=== PATIENT | female | born 1990 | race African-American/Black ===

== ENCOUNTER 2022-01-29 04:14 | Inpatient (IN) | payer MEDICAID ==
[~2022-01-29] VITALS: Ht 165.1 cm; Wt 93.9 kg
[~2022-01-29 04:14] MED LIST: ABIL10; ALBUTEROL; HYDR-3927 PO; INSASP SQ; INSULIN; LEVO500T2 PO; METO10TA3 PO; OMEP20CA14 PO; PREVACID; QUET300T2; [UNRECOGNIZED DRUG - REMARK]
[2022-01-29] MEDS ORDERED: DEXTROSE 50% WATER 50ML SYRINGE IV ONE (04:30)
[2022-01-29 05:42] LABS: BASOPHILS % 0.3 % (0.0-2.0); EOSINOPHILS % 0.2 % (0.0-5.0); HEMATOCRIT. 48.8 % (36.0-48.0); HEMOGLOBIN. 15.9 g/dL (12.0-16.0); LYMPHOCYTES % 8.1 % (20.0-50.0); MEAN CORPUSCULAR HEMOGLOBIN 26.8 pg (28.0-32.0); MEAN CORPUSCULAR VOLUME 82.4 fL (81.0-99.0); MONOCYTES % 4.3 % (2.0-8.0); NEUTROPHILS % 87.1 % (40.0-76.0); RED BLOOD CELL COUNT 5.92 mill/uL (4.2-5.4); RED CELL DISTRIBUTION WIDTH 16.6 % (11.6-14.6)
[2022-01-29 05:45] LABS: CHLORIDE 105 mEq/L (98-107)
[2022-01-29 06:14] LABS: MEAN PLATELET VOLUME 10.6 fl (7.4-10.4); PLATELET 407 x1000/uL (130-400)
[2022-01-29 06:30] LABS: CLARITY URINE CLEAR (CLEAR); COLOR URINE YELLOW (YELLOW); KETONES URINE NEGATIVE (NEGATIVE); LEUKOCYTE ESTERASE URINE NEGATIVE (NEGATIVE); NITRITE URINE NEGATIVE (NEGATIVE); OCCULT BLOOD URINE NEGATIVE (NEGATIVE); PH URINE 5.5 (4.5-8.0); PROTEIN URINE NEGATIVE (NEGATIVE); SPECIFIC GRAVITY URINE 1.007 (1.005-1.030); UROBILINOGEN URINE 0.2 E.U./dL (0.2-1.0)
[2022-01-29] MEDS ORDERED: POTASSIUM CHLORIDE 20MEQ TABLET SR PO ONE (07:00)
[2022-01-29] MEDS ORDERED: POTASSIUM CHLORIDE 20MEQ TABLET SR PO SCH (09:15)
[2022-01-29 11:59] VITALS: BP 113/80
[2022-01-29 12:02] VITALS: BP 120/60
[2022-01-29 12:13] VITALS: BP 120/60
[2022-01-29] MEDS ORDERED: ONDANSETRON HCL 4MG/2ML INJ IV PRN (12:15)
[2022-01-29] MEDS ORDERED: ACETAMINOPHEN 325MG TABLET PO PRN (12:15)
[2022-01-29] MEDS ORDERED: DOCUSATE SODIUM 100MG CAPSULE PO PRN (12:15)
[2022-01-29] MEDS ORDERED: MAGNESIUM/ALUMINUM HYDROXIDE/SIMETHICONE 30ML UDC PO PRN (12:15)
[2022-01-29] MEDS ORDERED: NALOXONE HCL 0.4MG/ML VIAL IV PRN (13:00)
[2022-01-29] MEDS: ENOXAPARIN 40MG/0.4ML SYR SUBCUT SCH (13:28)
[2022-01-29] MEDS: ACETAMINOPHEN 325MG TABLET PO PRN (13:29)
[2022-01-29] MEDS: SODIUM CHLORIDE 0.9% INJ 3ML FLUSH IVF SCH ×2 (13:29→22:00)
[2022-01-29 16:00] VITALS: BP 114/76
[2022-01-29 16:20] LABS: PHOSPHORUS 2.5 mg/dL (2.5-4.9)
[2022-01-29] MEDS: VANCOMYCIN 1,000 MG in DEXT 5% WATER 250 ML IV SCH (17:05)
[2022-01-29] MEDS ORDERED: DEXTROSE 50% WATER 50ML SYRINGE IV PRN (17:45)
[2022-01-29] MEDS: INSULIN LISPRO 100 UNITS/ML SUBCUT SCH ×2 (18:30→22:57)
[2022-01-29] MEDS ORDERED: LEVE1000 PO (18:47)
[2022-01-29 20:00] VITALS: BP 127/78
[2022-01-29 20:16] LABS: CHLORIDE 104 mEq/L (98-107)
[2022-01-29 20:20] LABS: PHOSPHORUS 2.4 mg/dL (2.5-4.9)
[2022-01-29] MEDS: BLOOD SUGAR DIAGNOSTIC STRIP TEST SCH (21:00)
[2022-01-30] VITALS: BP 133/63
[2022-01-30] MEDS: VANCOMYCIN 1,000 MG in DEXT 5% WATER 250 ML IV SCH ×3 (01:25→08:38)
[2022-01-30 04:00] VITALS: BP 139/81
[2022-01-30] MEDS: SODIUM CHLORIDE 0.9% INJ 3ML FLUSH IVF SCH ×3 (05:09→21:45)
[2022-01-30] MEDS: ACETAMINOPHEN 325MG TABLET PO PRN ×2 (06:00→21:41)
[2022-01-30] MEDS: BLOOD SUGAR DIAGNOSTIC STRIP TEST SCH ×4 (06:28→21:33)
[2022-01-30] MEDS: INSULIN LISPRO 100 UNITS/ML SUBCUT SCH ×4 (06:29→21:41)
[2022-01-30 06:34] LABS: BASOPHILS % 0.3 % (0.0-2.0); EOSINOPHILS % 1.5 % (0.0-5.0); HEMATOCRIT. 36.5 % (36.0-48.0); HEMOGLOBIN. 11.8 g/dL (12.0-16.0); LYMPHOCYTES % 29.4 % (20.0-50.0); MEAN CORPUSCULAR VOLUME 83.3 fL (81.0-99.0); MEAN PLATELET VOLUME 10.6 fl (7.4-10.4); MONOCYTES % 6.5 % (2.0-8.0); NEUTROPHILS % 62.3 % (40.0-76.0); PLATELET 294 x1000/uL (130-400); RED BLOOD CELL COUNT 4.38 mill/uL (4.2-5.4); RED CELL DISTRIBUTION WIDTH 16.4 % (11.6-14.6)
[2022-01-30 08:00] VITALS: BP 120/85
[2022-01-30 08:04] LABS: CHLORIDE 107 mEq/L (98-107)
[2022-01-30 08:11] LABS: PHOSPHORUS 3.3 mg/dL (2.5-4.9)
[2022-01-30 12:00] VITALS: BP 132/83
[2022-01-30] MEDS ORDERED: POTASSIUM CHLORIDE 20MEQ TABLET SR PO SCH (12:00)
[2022-01-30] MEDS: ENOXAPARIN 40MG/0.4ML SYR SUBCUT SCH (12:10)
[2022-01-30] MEDS ORDERED: MAGNESIUM 1 G PREMIX 100 ML IV SCH (13:00)
[2022-01-30 16:00] VITALS: BP 118/79
[2022-01-30] MEDS: VANCOMYCIN 750MG PREMIX 150 ML IV SCH (17:41)
[2022-01-30 19:43] LABS: *AMPHETAMINES SCREEN URINE NEGATIVE (NEGATIVE); *BARBITURATES SCREEN URINE NEGATIVE (NEGATIVE); *BENZODIAZEPINES SCREEN URINE NEGATIVE (NEGATIVE); *COCAINE SCREEN URINE NEGATIVE (NEGATIVE); CANNABINOID URINE SCREEN NEGATIVE (NEGATIVE); METHADONE URINE SCREEN NEGATIVE (NEGATIVE); OPIATES URINE SCREEN NEGATIVE (NEGATIVE); PHENCYCLIDINE URINE SCREEN NEGATIVE (NEGATIVE)
[2022-01-30 20:00] VITALS: BP 145/75
[2022-01-30] MEDS ORDERED: LEVETIRACETAM 500MG/5ML CUP PO SCH (21:00)
[2022-01-30] MEDS: LEVETIRACETAM 500MG TABLET PO SCH (21:30)
[2022-01-31] VITALS (7 sets, daily range): BP systolic 108–152; BP diastolic 70–103
[2022-01-31] MEDS: VANCOMYCIN 750MG PREMIX 150 ML IV SCH ×3 (02:02→17:39)
[2022-01-31] MEDS: SODIUM CHLORIDE 0.9% INJ 3ML FLUSH IVF SCH ×3 (05:47→20:51)
[2022-01-31] MEDS: BLOOD SUGAR DIAGNOSTIC STRIP TEST SCH ×4 (06:40→20:38)
[2022-01-31] MEDS: LEVETIRACETAM 500MG TABLET PO SCH ×2 (08:01→20:34)
[2022-01-31] MEDS: INSULIN LISPRO 100 UNITS/ML SUBCUT SCH ×4 (08:04→20:51)
[2022-01-31] MEDS: HYDROCODONE/ACETAMINOPHEN 5/325MG TABLET PO PRN ×3 (09:44→20:58)
[2022-01-31] MEDS: ENOXAPARIN 40MG/0.4ML SYR SUBCUT SCH (12:48)
[2022-01-31 21:46] LABS: CHLORIDE 104 mEq/L (98-107)
[2022-01-31] MEDS ORDERED: INSULIN GLARGINE 100 UNITS/ML SUBCUT SCH (22:00)
[2022-02-01] VITALS: BP 122/67
[2022-02-01 04:27] VITALS: BP 139/81
[2022-02-01] MEDS: BLOOD SUGAR DIAGNOSTIC STRIP TEST SCH ×4 (06:39→20:51)
[2022-02-01] MEDS: SODIUM CHLORIDE 0.9% INJ 3ML FLUSH IVF SCH ×3 (06:45→21:15)
[2022-02-01 08:00] VITALS: BP 136/83
[2022-02-01] MEDS: LEVETIRACETAM 500MG TABLET PO SCH ×2 (08:21→20:46)
[2022-02-01] MEDS: INSULIN LISPRO 100 UNITS/ML SUBCUT SCH ×4 (08:22→21:14)
[2022-02-01] MEDS: HYDROCODONE/ACETAMINOPHEN 5/325MG TABLET PO PRN ×3 (09:11→20:47)
[2022-02-01 12:00] VITALS: BP 134/84
[2022-02-01] MEDS: ENOXAPARIN 40MG/0.4ML SYR SUBCUT SCH (12:46)
[2022-02-01 16:00] VITALS: BP 128/83
[2022-02-01 20:00] VITALS: BP 130/72
[2022-02-01] MEDS: INSULIN GLARGINE 100 UNITS/ML SUBCUT SCH (21:15)
[2022-02-02 00:07] VITALS: BP 106/46
[2022-02-02 04:25] VITALS: BP 110/77
[2022-02-02] MEDS: SODIUM CHLORIDE 0.9% INJ 3ML FLUSH IVF SCH ×3 (06:33→22:00)
[2022-02-02] MEDS: BLOOD SUGAR DIAGNOSTIC STRIP TEST SCH ×4 (06:37→20:09)
[2022-02-02 08:00] VITALS: BP 112/62
[2022-02-02] MEDS: LEVETIRACETAM 500MG TABLET PO SCH ×2 (08:34→20:15)
[2022-02-02] MEDS: INSULIN LISPRO 100 UNITS/ML SUBCUT SCH ×4 (08:35→20:14)
[2022-02-02 08:38] LABS: BASOPHILS % 0.4 % (0.0-2.0); EOSINOPHILS % 1.4 % (0.0-5.0); HEMATOCRIT. 36.8 % (36.0-48.0); HEMOGLOBIN. 12.2 g/dL (12.0-16.0); LYMPHOCYTES % 24.1 % (20.0-50.0); MEAN CORPUSCULAR HEMOGLOBIN 27.1 pg (28.0-32.0); MEAN CORPUSCULAR VOLUME 82.1 fL (81.0-99.0); MEAN PLATELET VOLUME 9.2 fl (7.4-10.4); MONOCYTES % 6.8 % (2.0-8.0); NEUTROPHILS % 67.3 % (40.0-76.0); PLATELET 307 x1000/uL (130-400); RED BLOOD CELL COUNT 4.48 mill/uL (4.2-5.4); RED CELL DISTRIBUTION WIDTH 16.6 % (11.6-14.6)
[2022-02-02 09:24] LABS: CHLORIDE 102 mEq/L (98-107)
[2022-02-02] MEDS: HYDROCODONE/ACETAMINOPHEN 5/325MG TABLET PO PRN ×3 (10:31→20:09)
[2022-02-02 12:00] VITALS: BP 111/65
[2022-02-02] MEDS: ENOXAPARIN 40MG/0.4ML SYR SUBCUT SCH (12:38)
[2022-02-02 16:00] VITALS: BP 112/62
[2022-02-02] MEDS: VANCOMYCIN 750MG PREMIX 150 ML IV SCH (18:13)
[2022-02-02 18:47] LABS: UCG SCREEN NEGATIVE
[2022-02-02 20:34] VITALS: BP 113/67
[2022-02-02] MEDS: INSULIN GLARGINE 100 UNITS/ML SUBCUT SCH (22:14)
[2022-02-02] MEDS: DIPHENHYDRAMINE 50MG/ML VIAL IV PRN (22:15)
[2022-02-03 04:00] VITALS: BP 111/46
[2022-02-03] MEDS: HYDROCODONE/ACETAMINOPHEN 5/325MG TABLET PO PRN ×4 (04:28→22:12)
[2022-02-03] MEDS: DIPHENHYDRAMINE 50MG/ML VIAL IV PRN ×3 (04:28→18:32)
[2022-02-03] MEDS: VANCOMYCIN 750MG PREMIX 150 ML IV SCH ×3 (04:29→18:35)
[2022-02-03] MEDS: BLOOD SUGAR DIAGNOSTIC STRIP TEST SCH ×4 (05:55→21:00)
[2022-02-03] MEDS: SODIUM CHLORIDE 0.9% INJ 3ML FLUSH IVF SCH ×3 (05:56→21:53)
[2022-02-03 07:21] LABS: CHLORIDE 103 mEq/L (98-107)
[2022-02-03 07:23] LABS: BASOPHILS % 0.3 % (0.0-2.0); EOSINOPHILS % 1.7 % (0.0-5.0); HEMATOCRIT. 36.4 % (36.0-48.0); HEMOGLOBIN. 12.2 g/dL (12.0-16.0); LYMPHOCYTES % 22.2 % (20.0-50.0); MEAN CORPUSCULAR HEMOGLOBIN 27.3 pg (28.0-32.0); MEAN CORPUSCULAR VOLUME 81.4 fL (81.0-99.0); MEAN PLATELET VOLUME 9.5 fl (7.4-10.4); MONOCYTES % 7.1 % (2.0-8.0); NEUTROPHILS % 68.7 % (40.0-76.0); PLATELET 296 x1000/uL (130-400); RED BLOOD CELL COUNT 4.47 mill/uL (4.2-5.4); RED CELL DISTRIBUTION WIDTH 16.3 % (11.6-14.6)
[2022-02-03] MEDS: INSULIN LISPRO 100 UNITS/ML SUBCUT SCH ×4 (07:40→22:11)
[2022-02-03 08:00] VITALS: BP 111/64
[2022-02-03] MEDS: ENOXAPARIN 30MG/0.3ML SYR SUBCUT SCH ×2 (09:00→21:00)
[2022-02-03] MEDS: LEVETIRACETAM 500MG TABLET PO SCH ×2 (10:14→22:11)
[2022-02-03] MEDS ORDERED: IOHEXOL-350 100 ML BOTTLE ONE (11:38)
[2022-02-03 12:00] VITALS: BP 107/48
[2022-02-03] MEDS ORDERED: HYDROCODONE/ACETAMINOPHEN 5/325MG TABLET PO PRN (14:45)
[2022-02-03] MEDS ORDERED: NALOXONE HCL 0.4MG/ML VIAL IV PRN (14:45)
[2022-02-03 16:00] VITALS: BP 100/48
[2022-02-03 20:00] VITALS: BP 109/42
[2022-02-04] VITALS: BP 103/54
[2022-02-04] MEDS: VANCOMYCIN 750MG PREMIX 150 ML IV SCH ×3 (02:00→16:57)
[2022-02-04 04:00] VITALS: BP 107/52
[2022-02-04] MEDS: SODIUM CHLORIDE 0.9% INJ 3ML FLUSH IVF SCH ×3 (05:17→22:00)
[2022-02-04] MEDS: INSULIN LISPRO 100 UNITS/ML SUBCUT SCH ×4 (06:11→21:11)
[2022-02-04] MEDS: BLOOD SUGAR DIAGNOSTIC STRIP TEST SCH ×4 (06:37→21:00)
[2022-02-04 08:00] VITALS: BP 113/70
[2022-02-04] MEDS: LEVETIRACETAM 500MG TABLET PO SCH ×2 (08:57→21:10)
[2022-02-04] MEDS: ENOXAPARIN 30MG/0.3ML SYR SUBCUT SCH ×2 (08:57→21:09)
[2022-02-04] MEDS: HYDROCODONE/ACETAMINOPHEN 5/325MG TABLET PO PRN (09:11)
[2022-02-04] MEDS: DIPHENHYDRAMINE 50MG/ML VIAL IV PRN ×3 (10:24→23:06)
[2022-02-04] MEDS: INSULIN GLARGINE 100 UNITS/ML SUBCUT SCH ×2 (10:34→21:11)
[2022-02-04 11:45] VITALS: BP 108/64
[2022-02-04] MEDS: HYDROCODONE/ACETAMINOPHEN 10/325MG TABLET PO PRN ×3 (12:02→21:10)
[2022-02-04 16:00] VITALS: BP 116/75
[2022-02-04 17:16] LABS: CHLORIDE 98 mEq/L (98-107)
[2022-02-04 20:00] VITALS: BP 121/68
[2022-02-05] VITALS: BP 106/78
[2022-02-05] MEDS: VANCOMYCIN 750MG PREMIX 150 ML IV SCH ×2 (02:00→09:18)
[2022-02-05 04:00] VITALS: BP 113/85
[2022-02-05] MEDS: HYDROCODONE/ACETAMINOPHEN 10/325MG TABLET PO PRN ×4 (04:42→17:43)
[2022-02-05] MEDS: SODIUM CHLORIDE 0.9% INJ 3ML FLUSH IVF SCH ×2 (06:00→14:00)
[2022-02-05] MEDS: INSULIN LISPRO 100 UNITS/ML SUBCUT SCH ×4 (06:25→18:13)
[2022-02-05] MEDS: BLOOD SUGAR DIAGNOSTIC STRIP TEST SCH ×3 (06:25→17:47)
[2022-02-05 08:00] VITALS: BP 118/79
[2022-02-05] MEDS ORDERED: LIDOCAINE HCL 1% 10 MG/ML 10ML VIAL IJ SCH (09:15)
[2022-02-05] MEDS: ENOXAPARIN 30MG/0.3ML SYR SUBCUT SCH (09:17)
[2022-02-05] MEDS: DIPHENHYDRAMINE 50MG/ML VIAL IV PRN (09:18)
[2022-02-05] MEDS: LEVETIRACETAM 500MG TABLET PO SCH (09:18)
[2022-02-05] MEDS ORDERED: LIDOCAINE 2% JELLY PREFILLED SYRINGE MM NR (10:00)
[2022-02-05] MEDS ORDERED: LIDOCAINE HCL 1% 20ML VIAL (Pyxis) INJ INFIL SCH (10:00)
[2022-02-05] MEDS: INSULIN GLARGINE 100 UNITS/ML SUBCUT SCH (10:24)
[2022-02-05 12:00] VITALS: BP 114/61
[2022-02-05] MEDS ORDERED: CALAMINE LOTION 120ML TOP SCH (14:00)
[2022-02-05 14:49] VITALS: BP 114/61
[2022-02-05 16:00] VITALS: BP 122/63
[2022-02-05 17:41] LABS: BASOPHILS % 0.2 % (0.0-2.0); EOSINOPHILS % 1.3 % (0.0-5.0); HEMATOCRIT. 37.4 % (36.0-48.0); LYMPHOCYTES % 23.8 % (20.0-50.0); MEAN CORPUSCULAR HEMOGLOBIN 26.7 pg (28.0-32.0); MEAN CORPUSCULAR VOLUME 83.4 fL (81.0-99.0); MEAN PLATELET VOLUME 9.4 fl (7.4-10.4); NEUTROPHILS % 68.7 % (40.0-76.0); PLATELET 256 x1000/uL (130-400); RED BLOOD CELL COUNT 4.49 mill/uL (4.2-5.4); RED CELL DISTRIBUTION WIDTH 16.8 % (11.6-14.6)
[2022-02-05 18:11] LABS: CHLORIDE 97 mEq/L (98-107)
== END 2022-02-05 18:10 | disposition short-term general hospital (02) | DRG 420 ==
LOC: ER 04:14 → ENRESERV 08:44 → 7WST 11:42
PROVIDERS: ADMIT Internal Medicine; ATTEND Internal Medicine
DX: E11.69 Type 2 diabetes mellitus with other specified complication (principal); M86.141 Other acute osteomyelitis, right hand; D57.1 Sickle-cell disease without crisis; E11.65 Type 2 diabetes mellitus with hyperglycemia; E87.6 Hypokalemia; D72.829 Elevated white blood cell count, unspecified; F20.9 Schizophrenia, unspecified; E11.649 Type 2 diabetes mellitus with hypoglycemia without coma; G40.909 Epilepsy, unspecified, not intractable, without status epilepticus; F31.9 Bipolar disorder, unspecified; Z20.822 Contact with and (suspected) exposure to COVID-19; Z59.00 Homelessness unspecified; Z88.0 Allergy status to penicillin; Z88.8 Allergy status to other drugs, medicaments and biological substances; Z79.899 Other long term (current) drug therapy; Z79.4 Long term (current) use of insulin; Z72.0 Tobacco use
CPT/HCPCS: 36415; 71045; 73120; 73206; 73221; 80048; 80053; 80202; 80305; 81003; 81025; 82330; 82962; 83036; 83605; 83735; 84100; 84145; 84484; 85025; 87426; 93970; 99285; J1200; J1650; J1815; J3370; J3475; J3490; J7060; Q9967

== ENCOUNTER 2022-07-28 11:10 | Emergency (ER) | payer MEDICAID ==
[~2022-07-28] VITALS: Ht 167.6 cm; Wt 75.0 kg
[~2022-07-28 11:10] MED LIST changes: -ABIL10; -ALBUTEROL; -HYDR-3927 PO; -INSULIN; +LEVE1000 PO; -LEVO500T2 PO; -METO10TA3 PO; -OMEP20CA14 PO; -PREVACID; -QUET300T2; -[UNRECOGNIZED DRUG - REMARK]
[2022-07-28] MEDS ORDERED: SODIUM CHLORIDE 0.9% 1,000 ML IV ONE ×2 (11:30→18:15)
[2022-07-28 11:57] LABS: BG CARBOXYHEMOGLOBIN 1.2 % (0.5-1.5); BG FRACTION INSPIRED OXYGEN 21; BG HCO3 ACT 15.5 mmol/L (22.0-26.0); BG METHEMOGLOBIN 0.3 % (0.0-1.5); BG OXYHEMOGLOBIN 95.5 % (94.0-97.0); BG PH 7.332 (7.350-7.450); BG PO2 97.2 mmHg (75.0-100.0); BG SAMPLE SITE RIGHT RADIAL; BG TOTAL HEMOGLOBIN 14.2 g/dL (12.0-18.0); BG VENT MODE ROOM AIR
[2022-07-28 12:25] LABS: CHLORIDE 99 mEq/L (98-107)
[2022-07-28 12:28] LABS: BASOPHILS % 0.9 % (0.0-2.0); EOSINOPHILS % 0.7 % (0.0-5.0); HEMOGLOBIN. 13.6 g/dL (12.0-16.0); LYMPHOCYTES % 13.1 % (20.0-50.0); MEAN CORPUSCULAR HEMOGLOBIN 27.2 pg (28.0-32.0); MEAN CORPUSCULAR VOLUME 83.9 fL (81.0-99.0); MEAN PLATELET VOLUME 10.7 fl (7.4-10.4); MONOCYTES % 4.8 % (2.0-8.0); NEUTROPHILS % 80.5 % (40.0-76.0); PLATELET 187 x1000/uL (130-400); RED CELL DISTRIBUTION WIDTH 19.9 % (11.6-14.6)
[2022-07-28 12:51] LABS: HCG SCREEN NEGATIVE
[2022-07-28] MEDS: INSULIN REGULAR 100U/100ML PMX 100 ML IV SCH ×2 (13:00→15:00)
[2022-07-28] MEDS: SODIUM CHLORIDE 0.9% 1,000 ML IV ONE ×2 (13:00→15:00)
[2022-07-28] MEDS ORDERED: INSULIN REGULAR (DRIP) 100 UNITS in SODIUM CHLORIDE 0.9% 99 ML IV SCH (13:00)
[2022-07-28 13:05] LABS: CLARITY URINE CLEAR (CLEAR); COLOR URINE YELLOW (YELLOW); KETONES URINE 4+ (NEGATIVE); LEUKOCYTE ESTERASE URINE NEGATIVE (NEGATIVE); NITRITE URINE NEGATIVE (NEGATIVE); OCCULT BLOOD URINE NEGATIVE (NEGATIVE); PROTEIN URINE NEGATIVE (NEGATIVE); UROBILINOGEN URINE 0.2 E.U./dL (0.2-1.0)
[2022-07-28 13:48] LABS: ETHANOL BLOOD < 10 mg/dL
[2022-07-28 14:02] LABS: *AMPHETAMINES SCREEN URINE NEGATIVE (NEGATIVE); *BARBITURATES SCREEN URINE NEGATIVE (NEGATIVE); *BENZODIAZEPINES SCREEN URINE NEGATIVE (NEGATIVE); *COCAINE SCREEN URINE NEGATIVE (NEGATIVE); CANNABINOID URINE SCREEN NEGATIVE (NEGATIVE); METHADONE URINE SCREEN NEGATIVE (NEGATIVE); OPIATES URINE SCREEN NEGATIVE (NEGATIVE); PHENCYCLIDINE URINE SCREEN NEGATIVE (NEGATIVE)
[2022-07-28] MEDS ORDERED: DEXT 5%/0.45% NACL 1000ML 1,000 ML IV ONE (16:30)
[2022-07-28 17:55] LABS: CHLORIDE 112 mEq/L (98-107)
[2022-07-28] MEDS ORDERED: DEXTROSE 50% WATER 50ML SYRINGE IV PRN (18:15)
[2022-07-28] MEDS ORDERED: ACETAMINOPHEN 650MG/20.3ML UDC GT PRN (18:15)
[2022-07-28] MEDS ORDERED: ONDANSETRON HCL 4MG/2ML INJ IV PRN (18:15)
[2022-07-28] MEDS ORDERED: POTASSIUM CHLORIDE INJ 40 MEQ in DEXT 5% WATER 500 ML IV NR (19:00)
[2022-07-28] MEDS: INSULIN LISPRO 100 UNITS/ML SUBCUT SCH (21:00)
[2022-07-28] MEDS: BLOOD SUGAR DIAGNOSTIC STRIP TEST SCH (21:48)
[2022-07-28] MEDS ORDERED: INSULIN GLARGINE 100 UNITS/ML SUBCUT SCH (22:00)
[2022-07-29] MEDS: METOCLOPRAMIDE HCL 10MG/2ML VIAL IV SCH ×2 (00:30→06:31)
[2022-07-29 05:39] LABS: CHLORIDE 104 mEq/L (98-107)
[2022-07-29 05:40] LABS: BASOPHILS % 0.3 % (0.0-2.0); HEMOGLOBIN. 13.5 g/dL (12.0-16.0); LYMPHOCYTES % 16.9 % (20.0-50.0); MEAN CORPUSCULAR HEMOGLOBIN 27.5 pg (28.0-32.0); MEAN CORPUSCULAR VOLUME 83.4 fL (81.0-99.0); MEAN PLATELET VOLUME 9.7 fl (7.4-10.4); MONOCYTES % 7.6 % (2.0-8.0); NEUTROPHILS % 74.2 % (40.0-76.0); PLATELET 190 x1000/uL (130-400); RED BLOOD CELL COUNT 4.92 mill/uL (4.2-5.4); RED CELL DISTRIBUTION WIDTH 19.6 % (11.6-14.6)
[2022-07-29] MEDS ORDERED: INSULIN LISPRO 100 UNITS/ML SUBCUT NR (06:15)
[2022-07-29] MEDS ORDERED: INSULIN GLARGINE 100 UNITS/ML SUBCUT NR ×2 (08:00→08:15)
[2022-07-29] MEDS ORDERED: INSU100I28 SQ (08:00)
[2022-07-29] MEDS: INSULIN LISPRO 100 UNITS/ML SUBCUT SCH (08:46)
[2022-07-29] MEDS: BLOOD SUGAR DIAGNOSTIC STRIP TEST SCH (08:47)
[2022-07-29 09:50] VITALS: BP 127/74
[2022-07-29] MEDS ORDERED: INSULIN LISPRO 100 UNITS/ML SUBCUT SCH (12:50)
== END 2022-07-29 11:30 | disposition home or self-care (01) ==
LOC: ER 11:10 → EDBEDREQTM 15:31 → EDBEDREQ 15:31 → EDBEDREQSVC 21:14 → EDBEDREQ 07-29 06:09 → ER 07-29 11:30 → CANBEDREQ 07-29 12:48
DX: E11.65 Type 2 diabetes mellitus with hyperglycemia (principal); Z79.4 Long term (current) use of insulin; Z88.0 Allergy status to penicillin; E87.1 Hypo-osmolality and hyponatremia; E46 Unspecified protein-calorie malnutrition; Z68.26 Body mass index [BMI] 26.0-26.9, adult; G40.909 Epilepsy, unspecified, not intractable, without status epilepticus; Z79.899 Other long term (current) drug therapy; J45.909 Unspecified asthma, uncomplicated
CPT/HCPCS: 36415; 36573; 36600; 71045; 80048; 80053; 80305; 80320; 81003; 82010; 82375; 82805; 82962; 83036; 83690; 84703; 85025; 93005; 96361; 96365; 96366; 96372; 96375; 99291; C1725; J1815; J2765; J3480; J7030; J7060; J7050; G0480

== ENCOUNTER 2023-03-09 18:29 | Emergency (ER) | payer MEDICAID ==
[~2023-03-09] VITALS: Ht 165.1 cm; Wt 71.1 kg
[~2023-03-09 18:29] MED LIST changes: +AMLO5TAB88 MT; +INSU100I28 SQ; +LANTUSUD SUBCUT
[2023-03-09 22:29] VITALS: BP 133/82; TEMP 98; O2SAT 100
[2023-03-09 22:32] VITALS: PULSE 108; RESP 16
[2023-03-10] MEDS ORDERED: SULF1TAB48 MT (15:25)
== END 2023-03-10 00:40 | disposition left against medical advice (07) ==
LOC: ER 18:29
DX: Z53.21 Procedure and treatment not carried out due to patient leaving prior to being seen by health care provider (principal)
CPT/HCPCS: 99281

== ENCOUNTER 2023-03-10 09:52 | Emergency (ER) | payer MEDICAID ==
[~2023-03-10] VITALS: Ht 160 cm; Wt 55.0 kg
[2023-03-10 10:34] VITALS: BP 140/69; TEMP 98.7; O2SAT 100
[2023-03-10 10:56] VITALS: PULSE 72; RESP 20
[2023-03-10] MEDS ORDERED: SULF1TAB48 MT (15:25)
[2023-03-10 21:28] LABS: HCG SCREEN NEGATIVE
[2023-03-13 04:09] LABS: HIV SCREEN 4G Non Reactive (Non Reactive)
[2023-03-13 13:07] LABS: CHLAMYDIA TRACHOMATIS NAA Negative (Negative); NEISSERIA GONORRHOEAE NAA Negative (Negative)
== END 2023-03-10 16:12 | disposition home or self-care (01) ==
LOC: ER 09:52
DX: A64 Unspecified sexually transmitted disease (principal); L03.90 Cellulitis, unspecified; E11.9 Type 2 diabetes mellitus without complications; J45.909 Unspecified asthma, uncomplicated; F15.10 Other stimulant abuse, uncomplicated; Z90.49 Acquired absence of other specified parts of digestive tract; Z88.0 Allergy status to penicillin; Z88.6 Allergy status to analgesic agent; Z79.899 Other long term (current) drug therapy; Z86.59 Personal history of other mental and behavioral disorders
CPT/HCPCS: 81025; 84703; 86592; 87389; 87491; 87591; 99283

== ENCOUNTER 2023-11-16 14:51 | Emergency (ER) | payer MEDICAID, OTHER ==
[~2023-11-16] VITALS: Ht 167.6 cm; Wt 100.0 kg
[~2023-11-16 14:51] MED LIST changes: -AMLO5TAB88 MT; -INSASP SQ; -INSU100I28 SQ; +SULF1TAB48 MT
[2023-11-16 14:54] VITALS: O2SAT 100
[2023-11-16] MEDS: SODIUM CHLORIDE 0.9% 1,000 ML IV ONE ×2 (15:32→15:33)
[2023-11-16 15:43] LABS: CLARITY URINE CLEAR (CLEAR); COLOR URINE YELLOW (YELLOW); GLUCOSE URINE 3+ (NEGATIVE); KETONES URINE NEGATIVE (NEGATIVE); LEUKOCYTE ESTERASE URINE NEGATIVE (NEGATIVE); NITRITE URINE NEGATIVE (NEGATIVE); OCCULT BLOOD URINE NEGATIVE (NEGATIVE); PROTEIN URINE NEGATIVE (NEGATIVE); SPECIFIC GRAVITY URINE 1.021 (1.005-1.030); UROBILINOGEN URINE 0.2 E.U./dL (0.2-1.0)
[2023-11-16 15:45] LABS: BASOPHILS % 0.4 % (0.0-2.0); EOSINOPHILS % 0.7 % (0.0-5.0); HEMATOCRIT. 38.2 % (36.0-48.0); HEMOGLOBIN. 12.4 g/dL (12.0-16.0); LYMPHOCYTES % 17.6 % (20.0-50.0); MEAN CORPUSCULAR HEMOGLOBIN 26.1 pg (28.0-32.0); MEAN CORPUSCULAR HGB CONC 32.4 g/dL (31.0-37.0); MEAN CORPUSCULAR VOLUME 80.3 fL (81.0-99.0); MEAN PLATELET VOLUME 9.2 fl (7.4-10.4); MONOCYTES % 4.6 % (2.0-8.0); NEUTROPHILS % 76.7 % (40.0-76.0); PLATELET 307 x1000/uL (130-400); RED BLOOD CELL COUNT 4.75 mill/uL (4.2-5.4); RED CELL DISTRIBUTION WIDTH 20.8 % (11.6-14.6); WHITE BLOOD COUNT 10.1 x1000/uL (4.5-11.0)
[2023-11-16 15:51] LABS: CHLORIDE 105 mEq/L (98-107); POTASSIUM 4.3 mEq/L (3.5-5.1); SODIUM 139 mEq/L (136-145)
[2023-11-16 15:53] LABS: CALCIUM 9.8 mg/dL (8.7-10.4); CARBON DIOXIDE 25 mEq/L (21-32)
[2023-11-16 15:58] LABS: CREATININE 1.2 mg/dL (0.6-1.0); UREA NITROGEN BLOOD 11 mg/dL (9-23)
[2023-11-16 16:00] LABS: GLUCOSE 412 mg/dL (70-105); TROPONIN I HIGH SENSITIVITY < 4 ng/L (3.0-34)
[2023-11-16 16:11] LABS: HCG SCREEN NEGATIVE
[2023-11-16 16:21] LABS: BETA HYDROXYBUTYRATE < 0.1 mMol/L (0.0-0.3)
[2023-11-16 16:39] LABS: BACTERIA URINE RARE; RBC URINE 0-2 /hpf (0-2); SQUAMOUS EPITHELIAL CELL URINE FEW /lpf (RARE/1+); WBC URINE 0-2 /hpf (0-2); YEAST URINE NONE SEEN
[2023-11-16 17:10] VITALS: BP 132/62; PULSE 80; RESP 12; TEMP 98.2
== END 2023-11-16 17:30 | disposition home or self-care (01) ==
LOC: ER 15:28
DX: E11.65 Type 2 diabetes mellitus with hyperglycemia (principal); F15.10 Other stimulant abuse, uncomplicated; Z88.0 Allergy status to penicillin; Z88.6 Allergy status to analgesic agent; Z86.59 Personal history of other mental and behavioral disorders; Z90.49 Acquired absence of other specified parts of digestive tract
CPT/HCPCS: 99285; 96360; 71045; 80048; 81003; 82010; 82962; 84703; 83930; 85025; 85044; 84484; 36415; 93005; J7030

== ENCOUNTER 2025-02-24 12:39 | Inpatient (IN) | payer OTHER, MEDICAID ==
[~2025-02-24] VITALS: Ht 152.4 cm; Wt 126.1 kg
[2025-02-24 12:41] VITALS: O2SAT 100
[2025-02-24] MEDS: SODIUM CHLORIDE 0.9% 1,000 ML IV ONE ×2 (13:25→13:37)
[2025-02-24 13:46] LABS: BG BASE EXCESS 2.1 mmol/L (-2.0-3.0); BG CARBOXYHEMOGLOBIN 0.5 % (0.5-1.5); BG DEOXYHEMOGLOBIN 4.1 % (0.0-5.0); BG FRACTION INSPIRED OXYGEN 21; BG HCO3 ACT 26.9 mmol/L (21.0-28.0); BG METHEMOGLOBIN 0.3 % (0.5-1.5); BG OXYGEN SATURATION 95.9 % (94.0-98.0); BG OXYHEMOGLOBIN 95.1 % (94.0-98.0); BG PCO2 42.7 mmHg (32.0-45.0); BG PH 7.417 (7.350-7.450); BG PO2 82.9 mmHg (83.0-108.0); BG SAMPLE SITE RIGHT RADIAL; BG TOTAL HEMOGLOBIN 12.1 g/dL (12.0-16.0); BG VENT MODE ROOM AIR
[2025-02-24] MEDS: ACETAMINOPHEN 500MG TABLET PO ONE (14:06)
[2025-02-24 14:36] LABS: CLARITY URINE CLEAR (CLEAR); COLOR URINE YELLOW (YELLOW); GLUCOSE URINE 3+ (NEGATIVE); KETONES URINE NEGATIVE (NEGATIVE); LEUKOCYTE ESTERASE URINE NEGATIVE (NEGATIVE); NITRITE URINE NEGATIVE (NEGATIVE); OCCULT BLOOD URINE NEGATIVE (NEGATIVE); PH URINE 6.5 (4.5-8.0); PROTEIN URINE NEGATIVE (NEGATIVE); SPECIFIC GRAVITY URINE 1.034 (1.005-1.030); UROBILINOGEN URINE 0.2 E.U./dL (0.2-1.0)
[2025-02-24 14:48] LABS: BASOPHILS % 0.3 % (0.0-2.0); EOSINOPHILS % 1.7 % (0.0-5.0); HEMATOCRIT. 34.7 % (36.0-48.0); HEMOGLOBIN. 11.0 g/dL (12.0-16.0); LYMPHOCYTES % 20.2 % (20.0-50.0); MEAN PLATELET VOLUME 9.4 fl (7.4-10.4); MONOCYTES % 4.8 % (2.0-8.0); NEUTROPHILS % 73.0 % (40.0-76.0); PLATELET 315 x1000/uL (130-400); RED BLOOD CELL COUNT 4.51 mill/uL (4.2-5.4); RED CELL DISTRIBUTION WIDTH 18.9 % (11.6-14.6)
[2025-02-24 14:56] LABS: *AMPHETAMINES SCREEN URINE NEGATIVE (NEGATIVE); *BARBITURATES SCREEN URINE NEGATIVE (NEGATIVE); *BENZODIAZEPINES SCREEN URINE NEGATIVE (NEGATIVE); *COCAINE SCREEN URINE NEGATIVE (NEGATIVE); METHADONE URINE SCREEN NEGATIVE (NEGATIVE); OPIATES URINE SCREEN NEGATIVE (NEGATIVE)
[2025-02-24 14:57] LABS: CANNABINOID URINE SCREEN NEGATIVE (NEGATIVE); ECSTASY MDMA SCREEN URINE NEGATIVE (NEGATIVE); PHENCYCLIDINE URINE SCREEN NEGATIVE (NEGATIVE)
[2025-02-24] MEDS: DIPHENHYDRAMINE 25MG CAPSULE PO NR (14:59)
[2025-02-24] MEDS: IOHEXOL-350 100 ML BOTTLE ONE (14:59)
[2025-02-24 15:00] LABS: INR 1.0
[2025-02-24 15:02] LABS: HCG SCREEN NEGATIVE
[2025-02-24 15:04] LABS: CREATININE 0.9 mg/dL (0.6-1.0); UREA NITROGEN BLOOD 12 mg/dL (9-23)
[2025-02-24 15:05] LABS: ETHANOL BLOOD < 10 mg/dL (<10)
[2025-02-24 15:06] LABS: ASPARTATE AMINOTRANSFERASE 16 IU/L (<34); BILIRUBIN DIRECT < 0.1 mg/dL (<=3.0); TROPONIN I HIGH SENSITIVITY < 4 ng/L (3.0-34)
[2025-02-24 15:07] LABS: BILIRUBIN TOTAL 0.2 mg/dL (0.1-1.0); PROTEIN TOTAL 7.8 g/dL (6.0-8.3)
[2025-02-24 15:10] LABS: SQUAMOUS EPITHELIAL CELL URINE FEW /lpf (RARE/1+); WBC URINE 0-2 /hpf (0-2)
[2025-02-24 15:11] LABS: BACTERIA URINE NONE SEEN; RBC URINE NONE SEEN /hpf (0-2)
[2025-02-24] MEDS: INSULIN REGULAR (HUMULIN R) 1000UNITS/10ML VIAL SUBCUT NR (16:39)
[2025-02-24] MEDS: CLOPIDOGREL 75MG TABLET PO ONE (20:40)
[2025-02-25 03:15] VITALS: BP 128/82; PULSE 78; RESP 14; TEMP 36.5848
[2025-02-25] MEDS ORDERED: DEXTROSE 50% WATER 50ML SYRINGE IV PRN ×3 (05:30→17:15)
[2025-02-25] MEDS ORDERED: INS NPH/REG HM 70-30 10ML VIAL (HUMULIN 70-30) SUBCUT ONE (06:45)
[2025-02-25] MEDS: BLOOD SUGAR DIAGNOSTIC STRIP TEST SCH (07:05)
[2025-02-25] MEDS: INSULIN LISPRO 100 UNITS/ML SUBCUT SCH (07:06)
[2025-02-25] MEDS ORDERED: BLOOD SUGAR DIAGNOSTIC STRIP TEST SCH ×2 (07:10→17:10)
[2025-02-25 08:00] VITALS: BP 119/56; PULSE 80; RESP 16; TEMP 36.2; O2SAT 96
[2025-02-25] MEDS ORDERED: LEVETIRACETAM 1,000MG in NACL 100ML PREMIX IV SCH (09:00)
[2025-02-25 09:49] LABS: BASOPHILS % 0.3 % (0.0-2.0); EOSINOPHILS % 1.9 % (0.0-5.0); HEMATOCRIT. 32.4 % (36.0-48.0); HEMOGLOBIN. 10.6 g/dL (12.0-16.0); LYMPHOCYTES % 17.6 % (20.0-50.0); MEAN PLATELET VOLUME 9.5 fl (7.4-10.4); MONOCYTES % 4.7 % (2.0-8.0); NEUTROPHILS % 75.5 % (40.0-76.0); PLATELET 288 x1000/uL (130-400); RED BLOOD CELL COUNT 4.30 mill/uL (4.2-5.4); RED CELL DISTRIBUTION WIDTH 18.8 % (11.6-14.6)
[2025-02-25] MEDS: LEVETIRACETAM 1000MG PREMIX 100 ML IV SCH (09:55)
[2025-02-25] MEDS: ENOXAPARIN 40MG/0.4ML SYR SUBCUT SCH (09:55)
[2025-02-25] MEDS: INSULIN GLARGINE 100 UNITS/ML SUBCUT SCH (09:56)
[2025-02-25] MEDS: HYDROCODONE/ACETAMINOPHEN 10/325MG TABLET PO PRN (11:34)
[2025-02-25 12:00] VITALS: BP 129/81; PULSE 83; RESP 16; TEMP 36.2; O2SAT 97
[2025-02-25 16:00] VITALS: BP 147/91; PULSE 95; RESP 19; TEMP 36.3; O2SAT 100
[2025-02-25] MEDS ORDERED: FOLI-43 PO (17:05)
[2025-02-25] MEDS ORDERED: ONDANSETRON HCL 4MG/2ML INJ IV PRN (17:15)
[2025-02-25] MEDS ORDERED: ACETAMINOPHEN 325MG TABLET PO PRN (17:15)
[2025-02-25] MEDS ORDERED: INSULIN LISPRO 100 UNITS/ML SUBCUT SCH (17:40)
[2025-02-25 20:00] VITALS: BP 119/81; PULSE 76; RESP 18; TEMP 36.6; O2SAT 100
[2025-02-25] MEDS: CEFTRIAXONE 1GM/50ML 50 ML IV SCH (21:39)
[2025-02-25] MEDS: ATORVASTATIN CALCIUM 40MG TABLET PO SCH (21:39)
[2025-02-26] VITALS: BP 110/54; PULSE 80; RESP 18; TEMP 36.6; O2SAT 97
[2025-02-26 04:00] VITALS: BP 97/58; PULSE 80; RESP 18; TEMP 36.8; O2SAT 99
[2025-02-26 08:00] VITALS: BP 108/64; PULSE 80; RESP 18; TEMP 36.7; O2SAT 98
[2025-02-26 08:02] LABS: BASOPHILS % 0.2 % (0.0-2.0); EOSINOPHILS % 1.9 % (0.0-5.0); HEMATOCRIT. 35.2 % (36.0-48.0); HEMOGLOBIN. 11.4 g/dL (12.0-16.0); LYMPHOCYTES % 17.0 % (20.0-50.0); MEAN PLATELET VOLUME 9.4 fl (7.4-10.4); MONOCYTES % 5.4 % (2.0-8.0); NEUTROPHILS % 75.5 % (40.0-76.0); PLATELET 292 x1000/uL (130-400); RED BLOOD CELL COUNT 4.60 mill/uL (4.2-5.4); RED CELL DISTRIBUTION WIDTH 18.7 % (11.6-14.6)
[2025-02-26 08:21] LABS: CREATININE 0.7 mg/dL (0.6-1.0); TRIGLYCERIDE 92 mg/dL (0-150)
[2025-02-26 08:22] LABS: LDL CHOLESTEROL 61 mg/dL (5-100); UREA NITROGEN BLOOD 10 mg/dL (9-23)
[2025-02-26] MEDS: PANTOPRAZOLE SODIUM 40 MG/VIAL IV SCH (08:44)
[2025-02-26] MEDS: ASPIRIN 81MG EC TABLET PO SCH (08:44)
[2025-02-26] MEDS: FOLIC ACID 1MG TABLET PO SCH (08:44)
[2025-02-26] MEDS: DIPHENHYDRAMINE 50MG/ML VIAL IV PRN (10:17)
[2025-02-26 12:00] VITALS: BP 118/59; PULSE 81; RESP 20; TEMP 36.6
[2025-02-26] MEDS: INSULIN LISPRO 100 UNITS/ML SUBCUT SCH (15:00)
[2025-02-26 16:00] VITALS: BP 118/73; PULSE 80; RESP 20; TEMP 36.7; O2SAT 98
[2025-02-26 20:00] VITALS: BP 126/54; PULSE 72; RESP 18; TEMP 36.1
[2025-02-27] MEDS ORDERED: ASPI-1406 MT (10:01)
[2025-02-27 12:22] VITALS: BP 145/93; PULSE 114; RESP 20; TEMP 97.9
[2025-02-27] MEDS ORDERED: LEVETIRACETAM 100MG/ML ORAL SYR PO STA (12:55)
[2025-02-27] MEDS: LEVETIRACETAM 500MG TABLET PO SCH (13:15)
== END 2025-02-27 13:33 | DRG 69 ==
LOC: ER 12:39 → 8WST 02-25 00:13 → ENRESERV 02-25 00:53
PROVIDERS: ADMIT Internal Medicine; ATTEND Internal Medicine
DX: G45.9 Transient cerebral ischemic attack, unspecified (principal); G81.94 Hemiplegia, unspecified affecting left nondominant side; E11.65 Type 2 diabetes mellitus with hyperglycemia; D57.1 Sickle-cell disease without crisis; G40.909 Epilepsy, unspecified, not intractable, without status epilepticus; I25.10 Atherosclerotic heart disease of native coronary artery without angina pectoris; I10 Essential (primary) hypertension; J45.909 Unspecified asthma, uncomplicated; D72.829 Elevated white blood cell count, unspecified; Z79.4 Long term (current) use of insulin; Z79.899 Other long term (current) drug therapy; Z88.0 Allergy status to penicillin; Z90.49 Acquired absence of other specified parts of digestive tract; Z88.6 Allergy status to analgesic agent
CPT/HCPCS: 36415; 36600; 70496; 70498; 70551; 71045; 80048; 80061; 80076; 80305; 80320; 81003; 82010; 82375; 82805; 82962; 83036; 83930; 84443; 84484; 84703; 85025; 92523; 92610; 93005; 93306; 97162; 97166; 97530; 99291; J0696; J1200; J1650; J1815; J1953; J2470; J7030; Q0163; Q9967; G0480